=== PATIENT | female | born 1945 | race Caucasian/White ===

== ENCOUNTER → 2023-03-16 07:50 | Outpatient (BNVA) | payer MEDICARE, BC, SELFPAY | PROVIDERS: Family Provider Family Medicine; PCP Family Medicine; Visit Provider Internal Medicine Rheumatology | DX: M05.79 Rheumatoid arthritis with rheumatoid factor of multiple sites without organ or systems involvement (principal); Z79.899 Other long term (current) drug therapy; M19.90 Unspecified osteoarthritis, unspecified site; M47.816 Spondylosis without myelopathy or radiculopathy, lumbar region; M48.00 Spinal stenosis, site unspecified; Z71.85 Encounter for immunization safety counseling | CPT/HCPCS: 99204 ==

== ENCOUNTER 2023-04-28 10:52 | Outpatient (CLI) | payer MEDICARE, BC, SELFPAY ==
[2023-04-28 11:56] LABS: Basophils # 0.1 10^3/uL (0.0-0.1); Eosinophils # 0.2 10^3/uL (0.0-0.8); Eosinophils % 2.7 %; Hematocrit 43.8 % (36-47); Lymphocytes # 1.9 10^3/uL (0.8-4.8); Lymphocytes % 29.7 %; Mean Corpuscular HGB Conc 32.4 g/dL (30-55); Mean Corpuscular Hemoglobin 29.6 pg (27-33); Mean Corpuscular Volume 91.3 fl (85-98); Monocytes # 0.6 10^3/uL (0.2-0.9); Monocytes % 9.7 %; Neutrophils # 3.55 10^3/uL (1.8-7.7); Neutrophils % 55.7 %; Nucleated Red Blood Cells % 0 %; Platelet Count 266 10^3/cmm (157-399); White Blood Count 6.37 10^3/uL (3.29-11.43)
[2023-04-28 12:16] LABS: Alanine Aminotransferase 42 U/L (0-33); Albumin Level 3.9 g/dL (3.5-5.2); Alkaline Phosphatase 117 U/L (35-105); Aspartate Amino Transferase 35 U/L (0-32); Globulin 3.1 g/dL (1.3-4.6); Total Bilirubin 0.5 mg/dL (0.15-1.2)
[2023-04-28 12:23] LABS: Slide Review Slide Review Perform
[2023-04-28 12:26] LABS: Erythrocyte Sedimentation Rate 9 mm/hr (0-15)
[2023-04-28 12:51] LABS: Hepatitis B Core AB, Total Non-Reactive (Nonreactive); Hepatitis B Surface Antigen Non-Reactive (Nonreactive); Hepatitis C Virus Antibody Non-Reactive (Nonreactive)
[2023-05-02 12:29] LABS: Quantiferon Mitogen >10.00 IU/mL; Quantiferon Nil 0.05 IU/mL; Quantiferon Plus TB1 0.01 IU/mL; Quantiferon Plus TB2 <0.00 IU/mL; Quantiferon TB Gold NEGATIVE (NEGATIVE)
[2023-05-03 12:49] LABS: HLA-B27 NEGATIVE (NEGATIVE)
== END 2023-04-28 10:53 | disposition home or self-care (01) ==
PROVIDERS: PCP Family Medicine; Visit Provider Internal Medicine Rheumatology
DX: Z11.59 Encounter for screening for other viral diseases (principal); Z11.1 Encounter for screening for respiratory tuberculosis; Z79.899 Other long term (current) drug therapy; M19.90 Unspecified osteoarthritis, unspecified site; M45.6 Ankylosing spondylitis lumbar region
CPT/HCPCS: 36415; 80076; 82565; 85025; 85651; 86140; 86480; 86704; 86803; 86812; 87340